=== PATIENT | female | born 1995 | race Caucasian/White ===

== ENCOUNTER 2018-08-28 12:43 | Emergency (ER) | payer OTHER ==
[2018-08-28 12:56] VITALS: BP 129/64
--- NOTE | 2018-08-28 13:57 | ED Physician Documentation ---
PD HPI LOWER EXT INJURY - Stated complaint Stated Complaint: L FOOT INJ - Chief complaint Chief Complaint: Trauma Ext - History obtained from History obtained from: Patient - History of Present Illness PD HPI LOW EXT INJURY LOCATION: Left, Foot Type of injury: Twist Timing - onset: Today Timing - details: Abrupt onset Severity Comments: moderate Improved by: Immobilization Worsened by: Moving, Palpating Associated symptoms: No: Numbness, Swelling, Discolored Contributing factors: No: Anticoagulated Similar symptoms before: No diagnosis Recently seen: Not recently seen Review of Systems Constitutional: denies: Fever Cardiac: denies: Chest pain / pressure GI: denies: Abdominal Pain : denies: Dysuria Musculoskeletal: reports: Extremity pain, Joint pain Neurologic: denies: Head injury PD PAST MEDICAL HISTORY - Past Medical History Past Medical History: No - Past Surgical History Past Surgical History: No - Present Medications Home Medications: Ambulatory Orders Medication Instructions Recorded Confirmed Naproxen 500 mg PO BID PRN #60 tablet 08/28/18 Norgestimate-Ethinyl Estradiol 08/28/18 [Mononessa 28 Tablet] - Allergies Allergies/Adverse Reactions: Allergies Allergy/AdvReac Type Severity Reaction Status Date / Time No Known Drug Allergies Allergy Verified 08/28/18 12:55 - Social History Does the pt smoke?: No Smoking Status: Never smoker Does the pt drink ETOH?: No Does the pt have substance abuse?: No - Immunizations Immunizations are current?: Yes - POLST Patient has POLST: No PD ED PE NORMAL - General General: Alert and oriented X 3, No acute distress - HEENT HEENT: Atraumatic, PERRL, EOMI, Ears normal - Derm Derm: Normal color - Extremities Extremities: No deformity. No: No tenderness to palpate (The patient has tenderness to palpation on the dorsal surface of the foot, the patient has no ankle tenderness. There is no swelling of the ankle or foot or ecchymosis. The patient has no pain in the proximal fibular head. There is full active range of motion of the hip, knee and ankle and foot. Normal dorsalis pedis pulse and normal cap refill) - Neuro Neuro: Alert and oriented X 3, Normal speech - Psych Psych: Normal affect Results - Vitals Vitals: Vital Signs - 24 hr 08/28/18 12:52 Temperature 36.7 C Heart Rate 65 Respiratory 16 Rate Blood Pressure 129/64 O2 Saturation 97 Oxygen O2 Source Room air - Rads (name of study) XR foot Radiology: Final report received, See rad report PD MEDICAL DECISION MAKING - ED course ED course: No acute fracture seen on x-ray, the patient appears appropriate for discharge and ongoing outpatient management. I discussed with her the findings on the radiologist interpretation. I advised follow-up with primary care. I advised returning to the emergency department for any worsening or any concerns Departure - Departure Clinical Impression: Strain of foot, left Qualifiers: Encounter type: initial encounter Qualified Code(s): S96.912A - Strain of unspecified muscle and tendon at ankle and foot level, left foot, initial encounter Condition: Good Instructions: ED Sprain Foot Follow-Up: Stewart Young MD [Primary Care Provider] - Within 1 week Prescriptions: Naproxen 500 mg PO BID PRN #60 tablet PRN Reason: Pain Comments: Please return to the emergency department for any worsening or any concerns
--- NOTE | 2018-08-28 14:13 | XRAY Report ---
Reason: fall Procedure Date: 08/28/2018 Accession Number: [id number] / [id number] Procedure: XR - Foot 3 View LT CPT Code: FULL RESULT: EXAM: LEFT FOOT RADIOGRAPHY EXAM DATE: 08/28/2018 01:20 PM. CLINICAL HISTORY: Fall. COMPARISON: None available. TECHNIQUE: 3 views. FINDINGS: Bones: No acute fracture or dislocation visualized. Joints: No ankle joint effusion. Joint spaces are preserved. Soft Tissues: Unremarkable. IMPRESSION: No acute fracture or dislocation of the left foot. RADIA
== END 2018-08-28 14:38 | disposition home or self-care (01) ==
LOC: ED 12:43
DX: S96.912A Strain of unspecified muscle and tendon at ankle and foot level, left foot, initial encounter (principal); X50.1XXA Overexertion from prolonged static or awkward postures, initial encounter
CPT/HCPCS: 99283

== ENCOUNTER 2018-09-22 15:39 | Emergency (ER) | payer OTHER ==
[2018-09-22 15:50] VITALS: BP 127/74
--- NOTE | 2018-09-22 15:51 | ED Physician Documentation ---
PD HPI URI - Stated complaint Stated Complaint: RT EAR ACHE - Chief complaint Chief Complaint: Heent - History obtained from History obtained from: Patient - History of Present Illness Timing - onset: Other (4 days of muffled right ear hearing and ear pain with rhinorrhea and congestion as well but no fevers or possibility of .) Review of Systems Constitutional: denies: Fever, Chills Ears: reports: Loss of hearing, Ear pain. denies: Drainage/discharge Nose: reports: Rhinorrhea / runny nose, Congestion Throat: denies: Sore throat PD PAST MEDICAL HISTORY - Past Surgical History Past Surgical History: No - Present Medications Home Medications: Ambulatory Orders Medication Instructions Recorded Confirmed Norgestimate-Ethinyl Estradiol 08/28/18 [Mononessa 28 Tablet] Amoxicillin 500 mg PO TID #30 capsule 09/22/18 Guaifenesin/Pseudoephedrne HCl 1 each PO BID PRN #20 tab.er.12h 09/22/18 [Mucinex D ER 600-60 mg Tablet] - Allergies Allergies/Adverse Reactions: Allergies Allergy/AdvReac Type Severity Reaction Status Date / Time No Known Drug Allergies Allergy Verified 08/28/18 12:55 - Social History Does the pt smoke?: No Smoking Status: Never smoker Does the pt drink ETOH?: No Does the pt have substance abuse?: No - Immunizations Immunizations are current?: Yes - POLST Patient has POLST: No PD ED PE NORMAL - Vitals Vital signs reviewed: Yes - General General: Alert and oriented X 3, No acute distress - HEENT HEENT: Pharynx benign, Other (ROM, Ltm nl) - Neck Neck: Supple, no meningeal sign, No bony TTP - Neuro Neuro: Alert and oriented X 3, Normal speech Results - Vitals Vitals: Vital Signs - 24 hr 09/22/18 15:48 Temperature 36.4 C L Heart Rate 89 Respiratory 16 Rate Blood Pressure 127/74 O2 Saturation 100 Oxygen O2 Source Room air Departure - Departure Disposition: 01 Home, Self Care Clinical Impression: ROM (right otitis media) Qualifiers: Otitis media type: suppurative Chronicity: acute Recurrence: non-recurrent Spontaneous tympanic membrane rupture: without spontaneous rupture Qualified Code(s): H66.001 - Acute suppurative otitis media without spontaneous rupture of ear drum, right ear Condition: Good Record reviewed to determine appropriate education?: Yes Instructions: ED Otitis Media Acute Adult Prescriptions: Amoxicillin 500 mg PO TID #30 capsule Guaifenesin/Pseudoephedrne HCl [Mucinex D ER 600-60 mg Tablet] 1 each PO BID PRN #20 tab.er.12h PRN Reason: congestion Comments: Drink plenty of fluids. Return if worse, follow-up with your doctor in 1 week.
== END 2018-09-22 16:15 | disposition home or self-care (01) ==
LOC: ED 15:39
DX: H66.001 Acute suppurative otitis media without spontaneous rupture of ear drum, right ear (principal)
CPT/HCPCS: 99283